=== PATIENT | male | born 2000 | race Two or more races ===

== ENCOUNTER 2019-07-28 23:39 | Emergency (ER) | payer MEDICAID ==
[~2019-07-28] VITALS: Ht 177.8 cm; Wt 132.9 kg
[2019-07-29] MEDS ORDERED: Tetanus/Diptheria/Pertussis IM ONE (00:15)
--- NOTE | 2019-07-29 00:32 | NUR ---
ED Nurse Note: PATIENT HAS SUSTAINED LACERATION TO THE LEFT HAND JUST UNDER WRIST. 4 sutures placed in wound by Laceration sustained on engine that dropped whilst being held. Tetanus given as prescribed. Accompanied by cousin brother and aunt
[2019-07-29 00:39] VITALS: BP 105/64
[2019-07-29] MEDS ORDERED: Neosporin Oint Ud Pkt TOPIC ONE (00:45)
--- NOTE | 2019-07-29 00:48 | Emergency Room Report ---
History of Present Illness General Chief Complaint: Laceration Source: Patient Present Illness HPI This is a 19-year-old male who is right-hand dominant. He presents with chief complaint of laceration of the hand. He and his brother were working on their truck. They checked fell and he tried to hold up the truck and sustained a laceration. This occurred 5 hours prior to arrival. No other injury. Did not pass out. No active bleeding. Some pain to the left hand with a laceration is. No foreign body. Allergies: Coded Allergies: No Known Allergies (Unverified , 07/29/19) Patient History Past Medical History: see triage record, old chart reviewed Past Surgical History: none Pertinent Family History: none Social History: Reports: smoking Immunizations: other Reviewed Nursing Documentation: PMH: Agreed; PSxH: Agreed Review of Systems Eye: Denies: eye pain, blurred vision ENT: Denies: ear pain, nose congestion, throat swelling Respiratory: Denies: cough, shortness of breath Cardiovascular: Denies: chest pain, palpitations Gastrointestinal: Denies: abdominal pain, diarrhea, nausea, vomiting Musculoskeletal: Denies: back pain, joint pain Skin: Denies: rash Neurological: Denies: headache, numbness Endocrine: Denies: increased thirst, increased urine Hematologic/Lymphatic: Denies: easy bruising All Other Systems: negative except mentioned in HPI Physical Exam Vital Signs Date Time Temp Pulse Resp B/P (MAP) Pulse Ox O2 Delivery O2 Flow Rate FiO2 07/28/19 23:53 98.4 100 16 119/69 (86) 94 Room Air Vitals normal Sp02 EP Interpretation: reviewed, normal General Appearance: well appearing, no apparent distress, alert Head: normocephalic, atraumatic Eyes: bilateral eye PERRL, bilateral eye EOMI ENT: hearing grossly normal, normal pharynx Neck: full range of motion, supple, no meningismus Respiratory: chest non-tender, lungs clear, normal breath sounds Cardiovascular #1: regular rate, rhythm, no murmur Gastrointestinal: normal bowel sounds, non tender, no mass, no organomegaly, no bruit, non-distended Musculoskeletal: back normal, gait/station normal, normal range of motion, other - Left hand: He has a 2 cm laceration to the hypothenar eminence just distal to the wrist. Full range of motion of the wrist. No foreign body. No tendon laceration. Psychiatric: mood/affect normal Procedures Laceration/Wound Repair Laceration/Wound Repair : Consent: Verbal Wound Location: upper extremity Wound's Depth, Shape: linear, flap, contused tissue Wound Length (cm): 2 Wound Explored: clean Irrigated w/ Saline (ccs): 1000 Betadine Prep?: Yes Anesthesia: 1% Lidocaine Volume Anesthetic (ccs): 3 Wound Debrided: minimal Wound Repaired With: sutures Suture Size/Type: 5:0, proline Number of Sutures: 4 Patient Tolerated: Well Complications: None Medical Decision Making Diagnostic Impression: Primary Impression: Laceration of left hand Qualified Codes: S61.412A - Laceration without foreign body of left hand, initial encounter ER Course Patient presents with laceration to the left hand. Low risk for infection. Will discharge home. No foreign body or tendon laceration. Last Vital Signs Date Time Temp Pulse Resp B/P (MAP) Pulse Ox O2 Delivery O2 Flow Rate FiO2 07/29/19 00:39 98.5 108 16 105/64 95 Room Air Status: improved Disposition: HOME, SELF-CARE Condition: Stable Patient Instructions: Laceration Care, Adult Additional Instructions: Sutures out in 7 days. Follow-up with your doctor in 7 days or come back here for removal. Keep wound clean. Clean with hydrogen peroxide first and then apply antibiotic ointment. Return if symptoms worsen. Oliverio Montana MD Jul 29, 2019 00:48
--- NOTE | 2019-07-29 01:00 | NUR ---
ER DISCHARGE NOTE: Patient is cleared to be discharged per ERMD, pt is aox4, on room air, with stable vital signs. pt was given dc instructions, pt was able to verbalize understanding, pt id band removed. pt is able to ambulate with steady gait. pt took all belongings. Patient has a dressing insitu to the injury with neosporin as prescribed. Wound care advice provided. Discharge instructions. Uncomplaining of any pain at discharge.
[2019-07-29 01:05] VITALS: BP 134/84
== END 2019-07-29 01:05 | disposition home or self-care (01) ==
LOC: EMR 23:59
DX: S61.412A Laceration without foreign body of left hand, initial encounter (principal); Z23 Encounter for immunization; W45.8XXA Other foreign body or object entering through skin, initial encounter; Y93.89 Activity, other specified; Y92.9 Unspecified place or not applicable
CPT/HCPCS: 12001; 90471; 90715; Z7502; 99283